=== PATIENT | male | born 1965 | race Caucasian/White ===

== ENCOUNTER 2020-10-20 15:39 | Outpatient (CLI) | payer BC ==
--- NOTE | 2020-10-20 16:13 | RAD ---
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 No soft tissu e swelling is seen. No degenerative changes are present. IMPRESSION: No evidence of acute osseous abnormality.
== END 2020-10-20 15:40 | disposition home or self-care (01) ==
LOC: BICRAD 15:39
PROVIDERS: ATTEND Podiatrist
DX: M79.671 Pain in right foot (principal); G57.61 Lesion of plantar nerve, right lower limb